=== PATIENT | male | born 2000 | race Two or more races ===

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

== ENCOUNTER 2023-03-17 16:29 | Emergency (ER) | payer MEDICAID ==
[~2023-03-17] VITALS: Ht 170.2 cm; Wt 61.0 kg
[2023-03-17 16:41] VITALS: O2SAT 99
[2023-03-17] MEDS ORDERED: IBUPROFEN 400MG TABLET PO ONE (17:00)
[2023-03-17 17:06] LABS: BASOPHILS % 0.6 % (0.0-2.0); EOSINOPHILS % 0.8 % (0.0-5.0); HEMATOCRIT. 45.2 % (42.0-52.0); HEMOGLOBIN. 15.7 g/dL (14.0-18.0); LYMPHOCYTES % 19.2 % (20.0-50.0); MEAN CORPUSCULAR HGB CONC 34.7 g/dL (31.0-37.0); MEAN CORPUSCULAR VOLUME 89.2 fL (80.0-94.0); MEAN PLATELET VOLUME 9.4 fl (7.4-10.4); MONOCYTES % 10.8 % (2.0-8.0); NEUTROPHILS % 68.6 % (40.0-76.0); PLATELET 255 x1000/uL (130-400); RED BLOOD CELL COUNT 5.06 mill/uL (4.7-6.1); RED CELL DISTRIBUTION WIDTH 13.4 % (11.6-14.6); WHITE BLOOD COUNT 8.8 x1000/uL (4.5-11.0)
[2023-03-17 17:26] LABS: CALCIUM 8.7 mg/dL (8.5-10.1); CHLORIDE 112 mEq/L (98-107); INDEX HEMOLYSI 1 (1-3); INDEX ICTERIC 2 (1-4); INDEX LIPEMIC 1 (1-3); POTASSIUM 3.8 mEq/L (3.5-5.1); SODIUM 137 mEq/L (136-145)
[2023-03-17 17:36] LABS: ALANINE AMINOTRANSFERASE 20 IU/L (13-61); ALBUMIN 4.3 g/dL (3.4-5.0); ASPARTATE AMINOTRANSFERASE 14 IU/L (15-37); BILIRUBIN TOTAL 2.6 mg/dL (0.1-1.0); CARBON DIOXIDE 23 mEq/L (21-32); CREATININE 0.8 mg/dL (0.6-1.3); GLUCOSE 113 mg/dL (70-105); NT PRO B-TYPE NATRIURETIC PEP 23 pg/mL (5-125); PROTEIN TOTAL 7.7 g/dL (6.0-8.3); TROPONIN I HIGH SENSITIVITY 9 ng/L (<78); UREA NITROGEN BLOOD 14 mg/dL (7-21)
[2023-03-17 19:27] LABS: TROPONIN I HIGH SENSITIVITY 9 ng/L (<78)
[2023-03-17] MEDS ORDERED: IBUP-2028 MT (19:30)
[2023-03-17 20:09] VITALS: BP 167/87
[2023-03-17 20:10] VITALS: PULSE 93; RESP 18; TEMP 98.3
[2023-03-17] MEDS ORDERED: IBUPROFEN 400MG TABLET PO NR (20:15)
== END 2023-03-17 20:11 | disposition home or self-care (01) ==
LOC: ER 16:29
DX: R07.89 Other chest pain (principal); R42 Dizziness and giddiness
CPT/HCPCS: 36415; 71045; 80053; 83880; 84484; 85025; 93005; 99285